=== PATIENT | male | born 1965 | race Caucasian/White ===

== ENCOUNTER → 2016-07-19 | Outpatient (CLI) | payer OTHER ==
--- NOTE | 2016-07-19 12:18 | CT ---
Unenhanced CT Scan of the Lower Extremities (Pre-MAKOplasty protocol) Clinical History: 51-year-old male anticipating a left hip arthroplasty with a history of primary ost eoarthritis. ICD10 Diagnostic Code: M16.12. Technique: A multidetector unenhanced helical CT scan was obtained from the level of the iliac crests caudally through the proximal one-third femoral diaphyses, and then from the distal femoral metadiap hysis through the proximal tibial meta-epiphyses. Images through the hips are reformatted at 0.625 mm increments, and then through the knees at 2.500 mm increments, and reviewed in soft tissue and bone windows. Parasagittal and paracoronal reconstructed images of the pelvis are provided. The DFOV is 38 .0 cm. Dose reduction protocol was used. Comparison Study: Portable AP pelvis, retrieved from archive status, dated September 28, 2004. Findings: The patient has had a prior complete right hip arthroplasty, with stable anatomic positioni ng of the femoral and the acetabular components. The femoral mango is well-centered, and there is no si gnificant periprosthetic lucency to suggest loosening. There is no periostitis. There is severe degen erative osteoarthrosis of the left hip, with a "[id number]" phenomenon and degenerative spurs seen along the medial and lateral aspects of the femoral head. There is a well-corticated ossific density peripherolateral to the left acetabulum, which may represent an old avulsion injury or an unfused sec ondary ossification center. There is some mild acetabular articular spurring. The lumbosacral junctio n is anatomically aligned with some mild posterior L5-S1 disk space narrowing. The sacroiliac joints and symphysis pubis are within normal limits. There are some surgical clips in the right lower quadra nt of the abdomen. The urinary bladder is moderately distended, and the prostate gland is mildly enla rged, measuring 5.2 x 3.6 cm. Some rare sigmoid colon diverticula are seen. Limited imaging of the knees reveals some lateral patellofemoral joint space narrowing seen bilateral ly, with slight lateral patellar translation. There is no suprapatellar joint effusion, or lytic or b lastic lesion, and there is no loose osteochondral body. Impression: 1. Status post prior complete right hip arthroplasty, with anatomic alignment. 2. Severe degenerative osteoarthrosis of the left hip. 3. Lateral patellofemoral joint space narrowing with slight lateral patellar translation noted on eac h side. Images were also available for MAKOplasty surgical planning purposes.
== END ==
LOC: FIMAGING 10:31
PROVIDERS: ATTEND Orthopaedic Surgery
DX: M16.12 Unilateral primary osteoarthritis, left hip (principal); Z96.641 Presence of right artificial hip joint

== ENCOUNTER 2016-08-02 08:06 | Inpatient (IN) | payer OTHER ==
[2016-07-17 16:37] LABS: % IMMATURE GRANULYOCYTES 0.3 % (0.0-1.1); ABSOLUTE IMMATURE GRANULOCYTES 0.02 10^3/uL (0.00-0.10); ADD DIFF? NO; ADD MORPH? NO; ADD SCAN? NO; ATYPICAL LYMPHOCYTE FLAG 20 (0-99); FRAGMENT RBC FLAG 0 (0-99); HEMATOCRIT 47.2 % (40.0-51.0); HEMOGLOBIN 16.5 g/dL (13.7-17.5); LEFT SHIFT FLG 0 (0-99); LIPEMIA HEMOLYSIS FLAG 90 (0-99); MEAN CELL HEMOGLOBIN 30.9 pg (27.9-34.1); MEAN CELL VOLUME 88.4 fL (81.5-99.8); MEAN PLATELET VOLUME 9.8 fL (8.7-11.7); PLATELET CLUMPS FLAG 0 (0-99); PLATELET COUNT 200 10^3/uL (150-400); RED BLOOD CELL COUNT 5.34 10^6/uL (4.40-6.38); RED CELL DISTRIBUTION WIDTH 12.1 % (11.5-15.2)
[~2016-08-02 08:06] MED LIST: ACETAMINOPHEN 325 MG TAB PO ONE; CEFAZOLIN 2 GM/DEXTR 100 ML IV ONE; CHLORHEXIDINE GLUC HIBICLENS 118 ML BTL TP ONE; DEXAMETHASONE 4 MG/ML VIAL IVP ONE; FAMOTIDINE 20 MG TAB PO ONE; ROPI/epiNEPH/KETOROLAC JOINT COCKTAIL IU ONE; SKIN ADHESIVE (DERMABOND) 1 EACH TP ONE; TRANEXAMIC ACID 3,000 MG in NS 50 ML IRR ONE; TRANEXAMIC ACID 3,000 MG/50 ML BAG IRR ONE
[2016-08-02] MEDS ORDERED: LR 1,000 ML IV ONE (09:13)
[2016-08-02] MEDS ORDERED: LIDOCAINE 1% 5 ML SDV ID PRN (09:13)
[2016-08-02] MEDS ORDERED: MIDAZOLAM 2 MG/2 ML VIAL ONE (09:43)
[2016-08-02] MEDS ORDERED: PROPOFOL/EMULSION 500 MG/50 ML BOTTLE IV ONE (09:48)
[2016-08-02] MEDS ORDERED: fentaNYL 100 MCG/2 ML INJ ONE ×2 (10:30→11:50)
[2016-08-02] MEDS ORDERED: ONDANSETRON 4 MG/2 ML VIAL ONE (10:32)
[2016-08-02] MEDS ORDERED: PROMETHAZINE HCL 25 MG SUPPR PR PRN (11:39)
[2016-08-02] MEDS ORDERED: ONDANSETRON 4 MG/2 ML VIAL IVP PRN (11:39)
[2016-08-02] MEDS ORDERED: diphenhydrAMINE 25 MG CAP PO PRN (11:39)
[2016-08-02] MEDS ORDERED: ONDANSETRON DISINTEGRATING 4 MG TAB PO PRN (11:39)
[2016-08-02] MEDS ORDERED: TEMAZEPAM 15 MG CAP PO PRN (11:39)
[2016-08-02] MEDS ORDERED: CYCLOBENZAPRINE 10 MG TAB PO PRN (11:39)
[2016-08-02] MEDS ORDERED: DIPHENOXYLATE/ATROPINE LOMOTIL 1 TAB PO PRN (11:39)
[2016-08-02] MEDS ORDERED: PROMETHAZINE HCL 25 MG/ML INJ IVP PRN (11:39)
[2016-08-02] MEDS ORDERED: LACTULOSE 20 GM/30 ML UDCUP PO PRN (11:39)
[2016-08-02] MEDS ORDERED: POLYETHYLENE GLYCOL 3350 17 GM PKT PO PRN (11:39)
[2016-08-02] MEDS ORDERED: BISACODYL 10 MG SUPP PR PRN (11:39)
[2016-08-02] MEDS ORDERED: MAGNESIUM HYDROXIDE 30 ML UDCUP PO PRN (11:39)
[2016-08-02] MEDS ORDERED: METOCLOPRAMIDE 10 MG/2 ML VIAL IVP PRN (11:39)
[2016-08-02] MEDS ORDERED: PHARMACY PAIN CONSULT 1 EA MISC PRN (11:39)
--- NOTE | 2016-08-02 11:39 | POSTOPPROG ---
Post Op Note Date of Operation: 08/02/16 Surgeon: Segundo Ballesteros Felting Machine Operator Helper: cher ballesteros Anesthesiologist: dr. thompson Anesthesia: Spinal Pre-op Diagnosis: left hip OA Post-op Diagnosis: same Indication: left hip pain due to OA that failed conservative measures Procedure: L ANAMARIA ant approach Findings: severe hip OA Inf/Abcess present in the surg proc area at time of surgery?: No EBL: 100-500
[2016-08-02] MEDS ORDERED: NON-FORMULARY NEW DRUG (Fluticasone Nasal [Flonase Nasal Spray] 1 SPRAYS) EACHNARE PRN (11:40)
[2016-08-02] MEDS ORDERED: LR 1,000 ML IV SCH (12:00)
[2016-08-02] MEDS ORDERED: HYDROmorphONE/DILAUDID 1 MG/ML SYR ONE ×2 (12:01→12:32)
--- NOTE | 2016-08-02 12:43 | DX ---
AP Pelvis History: Hip replacement surgery. Findings: A bipolar new left and old right hip prosthesis are present and are in excellent anatomic a lignment. Impression: Excellent alignment of the new left hip replacement.
[2016-08-02] MEDS ORDERED: FLUTICASONE NASAL 120 SPRAYS/16 GM MDI EACHNARE PRN (13:02)
[2016-08-02] MEDS: ACETAMINOPHEN 325 MG TAB PO SCH ×3 (13:28→23:30)
[2016-08-02] MEDS: oxyCODONE IR 5 MG TAB PO PRN ×2 (13:34→19:12)
[2016-08-02] MEDS ORDERED: ceFAZolin 2 GM/DEXTROSE 100 ML IV SCH (14:00)
--- NOTE | 2016-08-02 16:46 | DX ---
Fluoroscopy for Left Hip Arthroplasty at 12:20 p.m. Indication: Left hip osteoarthritis. Fluoroscopy time: 2.7 seconds. Dose: 0.45 mGy. Technique: 2 intraoperative AP spot films. Findings: Two views reveal well seated and anatomically aligned left total hip arthroplasty jig. A larose rgical sponge overlies the greater trochanter. Impression: Good intraoperative alignment of left total hip arthroplasty jig.
[2016-08-02] MEDS: ceFAZolin 2 GM in D5W 100 ML IV SCH (18:03)
[2016-08-02] MEDS: SENNOSIDES/DOCUSATE SODIUM TAB PO SCH (20:35)
[2016-08-02] MEDS: ASPIRIN 325 MG TAB PO SCH (20:36)
[2016-08-02] MEDS: FAMOTIDINE 20 MG TAB PO SCH (20:36)
[2016-08-03] MEDS: ceFAZolin 2 GM in D5W 100 ML IV SCH (01:45)
--- NOTE | 2016-08-03 02:01 | GOP ---
[f rep st] OPERATIVE REPORT DATE OF OPERATION: 08/02/2016 SURGEON: Michelle Estrada MD PHARMACY PICKING TECHNICIAN: Mary Jane Estrada, LOUANN. ANESTHESIA: Spinal. PREOPERATIVE DIAGNOSIS: Left hip osteoarthritis. POSTOPERATIVE DIAGNOSIS: Left hip osteoarthritis. PROCEDURE PERFORMED: Total hip arthroplasty with navigation. FINDINGS: ESTIMATED BLOOD LOSS: 200 cc. INDICATIONS: The patient has progressively worsening arthritis of the hip which has failed medical m anagement. The patient understands the treatment option including continued non-operative care and h as selected surgical intervention. The patient has decided to undergo total hip arthroplasty via the direct anterior approach understanding the risks of the procedure including, but not limited to, otoniel rovascular injury, infection, persistent pain, component wear and loosening, deep venous thrombosis, pulmonary embolism, limb length inequality (including dislocation), and intraoperative fractures. DESCRIPTION OF PROCEDURE: After proper identification of the patient including verification and anna ing the surgical site, the patient was brought to the operating room and placed in the supine positio n. All bony prominences were well padded. Anesthesia was induced without complication and intraveno us prophylactic antibiotics were administered prior to skin incision. After prepping and draping in the usual sterile fashion, attention was drawn to the contralateral pel vis for attachment of the computer navigation tracker. Three percutaneous incisions were made over t he iliac crest and the pelvic tracker was affixed using threaded 3.5 mm pins yielding excellent fixat ion. Using computer navigation the patient's leg length and topographical pelvic anatomy was registe red without complication. Attention was then drawn to surgical exposure of the hip. An incision was made with a #10 Bard Jaziel r blade starting 3 cm lateral and 3 cm distal to the anterior superior iliac spine measuring 8 cm to 10 cm and coursing distally toward the greater trochanter. The skin and subcutaneous tissues were di vided sharply down the fascia samantha. The fascia samantha was incised in line with the skin incision expos ing the underlying tensor fascia samantha muscle. This muscle was bluntly elevated from the fascia and t he first extracapsular Cobra retractor was placed laterally at the junction of the superior femoral n ralph and greater trochanter. The lateral femoral circumflex vessels were identified, cauterized and d ivided with the Aquamantys bipolar cautery. The deep investing fascia of the TFL was divided to allo w proper mobilization of the muscle preventing damage during retraction. The reflected head of the r ectus femoris muscle was elevated off the anterior hip capsule and a medial Cobra retractor was place d just proximal to the lesser trochanter. The anterior capsulotomy was made sharply from the superolateral acetabulum to the saddle junction of the superior femoral neck and greater trochanter, then coursing inferomedial towards the lesser troc hanter. The retractors were then placed in the intracapsular position for femoral neck osteotomy. C orresponding to preoperative templating the osteotomy was made with the oscillating saw protecting th e greater trochanter and soft tissues. The femoral head was removed from the acetabulum with a corks crew and confirmed to be severely arthritic with exposed bone, deformity and osteophytes. Similar fi nding were confirmed in the acetabulum. The Arch table extension was then placed in 40 degrees external rotation. Attention was then drawn t o the acetabular preparation. After placement of the anterior and posterior Cobra retractors outside the labrum and intrascapular the circumferential labrum was removed sharply. The foveal contents we re then removed and hemostasis obtained with cautery. The anatomy of the acetabulum was then registe red using computer navigation. The first reamer selected was sized using the removed femoral head. Reaming began with robotic john t at 40 degrees of abduction and 20 degrees of anteversion using computer navigation. Reaming ceased 0 mm less than the definitive acetabular component. The final acetabular component was inserted usi ng the computer to achieve proper orientation yielding excellent purchase and stability in the acetab ulum. The final acetabular liner was then placed and its seating confirmed. Attention was then turned to the femur. The Arch table extension was placed in extension and adducti on delivering the osteotomized femoral neck into the wound. A 2-pronged femoral elevator was placed at the calcar and another at the tip of the greater trochanter. The posterolateral capsule was relea sed with cautery allowing mobilization of the femur lateral and anterior for preparation. The enamel cracker al rotators were visualized and preserved. A curette and rongeur were used to open the starting poin t for broaching. Serial broaching started with the #0 broach and ended with the broach that exhibited excellent fit in the proximal femur. A change in pitch during mallet strikes was accompanied by the inability to advance the broach any further. The trial reduction was performed and fluoroscopic shirley igation was utilized to check limb length. Adjustments were made to equalize limb length accordingly . After the final trials were accepted they were removed and the wound was copiously lavaged. The femo ral component was seated to the same depth as the final broach and the femoral head was impacted onto the clean trunnion. The hip was then reduced for the final time and once more fluoroscopic navigati on used to check that limb length equality was achieved. The wound was irrigated and closed in layers, the fascia samantha with 2-0 Quill, the subcutaneous tissue with a 2-0 Quill, and the skin with Dermabond, including the small incisions for computer navigation . Sterile dressings were applied. Final sharps and sponge counts were accurate. The patient was th en transferred to a hospital bed and brought to the recovery room in stable condition. IMPLANTS: Accolade II size 3 x 132, acetabular component 52 mm Titanium. The liner is a Trident X3, 56 mm. The head is a Biolox Delta 36 mm +0. /[id number]/MODL
[2016-08-03 04:34] VITALS: RESP 16
[2016-08-03] MEDS: ACETAMINOPHEN 325 MG TAB PO SCH ×2 (04:44→12:26)
[2016-08-03] MEDS: oxyCODONE IR 5 MG TAB PO PRN ×3 (04:44→14:03)
[2016-08-03 05:36] LABS: HEMATOCRIT 35.7 % (40.0-51.0); HEMOGLOBIN 12.6 g/dL (13.7-17.5)
[2016-08-03] MEDS: ASPIRIN 325 MG TAB PO SCH (08:40)
[2016-08-03] MEDS: FAMOTIDINE 20 MG TAB PO SCH (08:40)
[2016-08-03] MEDS: SENNOSIDES/DOCUSATE SODIUM TAB PO SCH (08:40)
[2016-08-03] MEDS ORDERED: LISINOPRIL 10 MG TAB PO SCH (09:00)
--- NOTE | 2016-08-03 10:04 | SOAPPROG ---
SOAP Progress Note Assessment/Plan: Assessment: Alfa is doing well POD 1 s/p L ANAMARIA 1) pain management: doing well on oral pain meds. well controlled. 2) anemia: level expected initially postop, asymptomatic. continue to monitor 3) VTe ppx: aspirin 325mg daily, DANIEL hose and SCDs. 4) D/c planning: patient may be d/c'd to home today. Plan: 08/03/16 10:02 Subjective: Alfa is doing well today, denies SOB, chest pain and N/V. Objective: Vital Signs Temp Pulse Resp BP Pulse Ox 36.6 C 62 16 109/59 L 94 08/03/16 07:17 08/03/16 07:17 08/03/16 07:17 08/03/16 07:17 08/03/16 07:17 Laboratory Results 08/03/16 05:00 08/02/16 08/03/16 08/04/16 05:59 05:59 05:59 Intake Total 2275 500 Output Total 2670 1 Balance -395 499 LLE: incision dressing is clean and dry, NVI, +pf/df ICD10 Worksheet Patient Problems: Problems Problem Status Diagnosed Primary localized osteoarthritis of left hip Acute
[2016-08-03 12:24] VITALS: BP 100/69; PULSE 67; TEMP 98.2; O2SAT 95
--- NOTE | 2016-08-03 12:43 | GDS ---
[f rep st] DISCHARGE SUMMARY ADMISSION DIAGNOSIS: Left hip osteoarthritis. DISCHARGE DIAGNOSIS: Left hip osteoarthritis. PROCEDURE: Left total hip arthroplasty, robot assisted. VTE PROPHYLAXIS: Aspirin recommended for 3 weeks daily. BRIEF DESCRIPTION OF HOSPITAL STAY: Patient was admitted for an elective joint arthroplasty. The pa tient tolerated the procedure well and has passed physical therapy. The patient was given appropriat e antibiotic prophylaxis and venous thromboembolism prophylaxis. The patient's pain was well control led on oral pain medication, patient was holding down food, and had urinated. Decision was made to d ischarge the patient. The patient was given post-operative prescriptions pre-operatively. PLAN: Please follow up as scheduled with Dr. Estrada's office on August 22, 2016, at 4 p.m. /[id number]/MODL
== END 2016-08-03 14:56 | disposition home or self-care (01) | DRG 470 ==
LOC: F3N 08:06
PROVIDERS: ADMIT Orthopaedic Surgery; ATTEND Orthopaedic Surgery
PROC: 0SRB04A Replacement of Left Hip Joint with Ceramic on Polyethylene Synthetic Substitute, Uncemented, Open Approach (ICD-10-PCS; principal; 2016-08-02 10:15)
PROC: 8E0Y0CZ Robotic Assisted Procedure of Lower Extremity, Open Approach (ICD-10-PCS; principal; 2016-08-02 10:15)
DX: M16.12 Unilateral primary osteoarthritis, left hip (principal); I10 Essential (primary) hypertension
CPT/HCPCS: 97110-GP; 97116-GP; 97161-GP; 97165-GO; J0171; J0690; J1100; J1170; J1885; J2250; J2405; J2704; J2795; J3010

== ENCOUNTER → 2018-09-02 | Outpatient (CLI) | payer OTHER | LOC: BMCIMAGING 16:16 | PROVIDERS: ATTEND Internal Medicine | DX: Z02.89 Encounter for other administrative examinations (principal) ==